=== PATIENT | male | born 1955 | race Caucasian/White ===

== ENCOUNTER 2023-06-22 19:19 | Inpatient (IN) | payer OTHER, BC ==
[2023-06-22 19:28] VITALS: BMI 28.7
[2023-06-22] MEDS ORDERED: ACETAMINOPHEN 1000 MG/100 ML BAG IVPB ONE (20:04)
[2023-06-22] MEDS ORDERED: guaiFENesin 200 MG/10 ML 10 ML UNIT-DOSE CUPS PO ONE (20:04)
[2023-06-22] MEDS ORDERED: SODIUM CHLORIDE 0.9% 500 ML INFUS.BAG IV ONE (20:07)
[2023-06-22] MEDS ORDERED: ONDANSETRON 4 MG/2 ML VIAL IVPUSH ONE (20:24)
[2023-06-22] MEDS: ALBUTEROL SO4 2.5/IPRATROPIUM 0.5 INH SOL 3 ML VIAL.NEB. NEB SCH ×3 (20:47→21:00)
[2023-06-22 20:52] LABS: BASO % 0.2 % (0-2.0); EOS % 0.5 % (0-4.5); HEMATOCRIT 39.7 % (35.4-49); HEMOGLOBIN 13.9 GM/dL (11.7-16.9); LYMPH % 7.9 % (8-40); MCH 32.4 pg (25.7-33.7); MEAN CELL VOLUME 92.4 fl (80-96); MEAN PLT VOLUME 6.8 fl (7.5-11.1); MONO % 12.2 % (3.8-10.2); NEUT % 79.2 % (42.8-82.8); PLATELET COUNT 271 10^3/uL (134-434); RDW 13.5 % (11.9-15.9)
[2023-06-22 20:56] LABS: INR 1.31 (0.83-1.09); PROTHROMBIN TIME (PATIENT) 15.1 SEC (9.7-13.0)
[2023-06-22 20:58] LABS: ACTIVATED PTT 30.3 SECONDS (25.2-36.5)
[2023-06-22 21:39] LABS: POTASSIUM 3.8 mmol/L (3.5-5.1)
[2023-06-22 21:41] LABS: CALCIUM 8.6 mg/dL (8.5-10.1)
[2023-06-22 21:42] LABS: ALBUMIN 3.8 g/dl (3.4-5.0); BLOOD UREA NITROGEN 15.5 mg/dL (7-18); MAGNESIUM 1.6 mg/dL (1.8-2.4)
[2023-06-22] MEDS ORDERED: OSELTAMIVIR PHOSPHATE 75 MG CAPSULE PO ONE (21:42)
[2023-06-22] MEDS ORDERED: methylPREDNISolone NA SUCC 125 MG/2 ML VIAL IVPUSH ONE (21:42)
[2023-06-22 21:45] LABS: CREATININE 0.8 mg/dL (0.55-1.3)
[2023-06-22] MEDS: ALBUTEROL SO4 0.083% IH SOL 2.5 MG/3 ML VIAL.NEB. NEB SCH ×4 (21:45→22:32)
[2023-06-22 21:46] LABS: BILIRUBIN,TOTAL 0.6 mg/dL (0.2-1)
[2023-06-22] MEDS ORDERED: ALBUTEROL SO4 0.083% IH SOL 2.5 MG/3 ML VIAL.NEB. NEB ONE (21:50)
[2023-06-22] MEDS ORDERED: methylPREDNISolone NA SUCC 125 MG/2 ML VIAL ONE (21:51)
[2023-06-22] MEDS ORDERED: OSELTAMIVIR PHOSPHATE 75 MG CAPSULE ONE (21:51)
[2023-06-22] MEDS ORDERED: MAGNESIUM 1GM/D5W - 1 GM/100 ML IVPB IVPB ONE (21:51)
[2023-06-23] MEDS ORDERED: methylPREDNISolone NA SUCC 40 MG/1 ML VIAL ONE ×3 (02:52→13:49)
[2023-06-23] MEDS: methylPREDNISolone NA SUCC 40 MG/1 ML VIAL IVPUSH SCH ×4 (02:58→21:55)
[2023-06-23] MEDS ORDERED: ALBUTEROL SO4 2.5/IPRATROPIUM 0.5 INH SOL 3 ML VIAL.NEB. NEB PRN (07:06)
[2023-06-23] MEDS ORDERED: OSELTAMIVIR PHOSPHATE 75 MG CAPSULE ONE (08:16)
[2023-06-23] MEDS ORDERED: ESCITALOPRAM OXALATE 10 MG TABLET ONE (08:16)
[2023-06-23] MEDS ORDERED: guaiFENesin 200 MG/10 ML 10 ML UNIT-DOSE CUPS ONE (08:16)
[2023-06-23] MEDS ORDERED: busPIRone HCL 5 MG TABLET ONE (08:16)
[2023-06-23] MEDS ORDERED: ALBUTEROL SO4 2.5/IPRATROPIUM 0.5 INH SOL 3 ML VIAL.NEB. NEB ONE ×2 (08:16→13:49)
[2023-06-23] MEDS: ESCITALOPRAM OXALATE 20 MG TABLET PO SCH (08:20)
[2023-06-23] MEDS: busPIRone HCL 5 MG TABLET PO SCH (08:20)
[2023-06-23] MEDS: OSELTAMIVIR PHOSPHATE 75 MG CAPSULE PO SCH ×2 (08:20→21:55)
[2023-06-23 09:11] LABS: HEMATOCRIT 38.7 % (35.4-49); HEMOGLOBIN 13.5 GM/dL (11.7-16.9); MCH 32.3 pg (25.7-33.7); MCHC 34.8 g/dl (32.0-35.9); MEAN CELL VOLUME 92.6 fl (80-96); MEAN PLT VOLUME 7.3 fl (7.5-11.1); PLATELET COUNT 255 10^3/uL (134-434); RBC 4.18 M/mm3 (4.00-5.60); RDW 13.4 % (11.9-15.9); WHITE BLOOD COUNT 8.3 K/mm3 (4.0-10.0)
[2023-06-23 09:45] LABS: ANISOCYTOSIS 0; HELMET CELLS 0; HOWELL-JOLLY BODIES 0; MACROCYTOSIS 0; OVALOCYTE 0; ROULEAU 0; SICKELED CELLS 0; TARGET CELLS 0; TEAR DROP CELLS 0; TOXIC GRANULATION 0
[2023-06-23 09:54] LABS: POTASSIUM 4.1 mmol/L (3.5-5.1)
[2023-06-23 10:10] LABS: BLOOD UREA NITROGEN 12.6 mg/dL (7-18); CALCIUM 8.8 mg/dL (8.5-10.1)
[2023-06-23 10:13] LABS: CREATININE 0.7 mg/dL (0.55-1.3)
[2023-06-23] MEDS: THEOPHYLLINE ANHYDROUS 200 MG CAP.ER.24H PO SCH (13:23)
[2023-06-23] MEDS: ALBUTEROL SO4 2.5/IPRATROPIUM 0.5 INH SOL 3 ML VIAL.NEB. NEB SCH ×2 (13:51→20:22)
[2023-06-23] MEDS: ALBUTEROL SO4 0.083% IH SOL 2.5 MG/3 ML VIAL.NEB. NEB PRN (18:06)
[2023-06-23] MEDS ORDERED: ALBUTEROL SO4 0.083% IH SOL 2.5 MG/3 ML VIAL.NEB. NEB ONE (18:06)
[2023-06-23] MEDS: MONTELUKAST NA 10 MG TABLET PO SCH (21:55)
[2023-06-23] MEDS: guaiFENesin 200 MG/10 ML 10 ML UNIT-DOSE CUPS PO PRN (22:06)
[2023-06-24] MEDS: methylPREDNISolone NA SUCC 40 MG/1 ML VIAL IVPUSH SCH ×4 (03:35→17:39)
[2023-06-24] MEDS: ALBUTEROL SO4 0.083% IH SOL 2.5 MG/3 ML VIAL.NEB. NEB PRN (04:30)
[2023-06-24] MEDS: guaiFENesin 200 MG/10 ML 10 ML UNIT-DOSE CUPS PO PRN ×2 (04:51→21:37)
[2023-06-24] MEDS: ALBUTEROL SO4 2.5/IPRATROPIUM 0.5 INH SOL 3 ML VIAL.NEB. NEB SCH ×3 (08:40→20:07)
[2023-06-24] MEDS ORDERED: ESCITALOPRAM OXALATE 10 MG TABLET ONE (09:09)
[2023-06-24] MEDS: busPIRone HCL 5 MG TABLET PO SCH (09:13)
[2023-06-24] MEDS: ESCITALOPRAM OXALATE 20 MG TABLET PO SCH (09:14)
[2023-06-24] MEDS: THEOPHYLLINE ANHYDROUS 200 MG CAP.ER.24H PO SCH (09:14)
[2023-06-24] MEDS: OSELTAMIVIR PHOSPHATE 75 MG CAPSULE PO SCH ×2 (10:38→21:37)
[2023-06-24] MEDS: MONTELUKAST NA 10 MG TABLET PO SCH (21:37)
[2023-06-25] MEDS: ALBUTEROL SO4 0.083% IH SOL 2.5 MG/3 ML VIAL.NEB. NEB PRN ×3 (00:43→11:26)
[2023-06-25] MEDS: methylPREDNISolone NA SUCC 40 MG/1 ML VIAL IVPUSH SCH ×3 (01:30→21:36)
[2023-06-25] MEDS: ALBUTEROL SO4 2.5/IPRATROPIUM 0.5 INH SOL 3 ML VIAL.NEB. NEB SCH ×3 (07:38→20:19)
[2023-06-25] MEDS ORDERED: ESCITALOPRAM OXALATE 10 MG TABLET ONE (09:11)
[2023-06-25] MEDS: clonazePAM 0.5 MG TABLET PO SCH ×2 (09:25→21:36)
[2023-06-25] MEDS: busPIRone HCL 5 MG TABLET PO SCH (09:25)
[2023-06-25] MEDS: ESCITALOPRAM OXALATE 20 MG TABLET PO SCH (09:25)
[2023-06-25] MEDS: OSELTAMIVIR PHOSPHATE 75 MG CAPSULE PO SCH ×2 (09:26→21:36)
[2023-06-25] MEDS: THEOPHYLLINE ANHYDROUS 200 MG CAP.ER.24H PO SCH (09:26)
[2023-06-25 10:38] LABS: HEMATOCRIT 39.8 % (35.4-49); HEMOGLOBIN 13.5 GM/dL (11.7-16.9); MCH 31.3 pg (25.7-33.7); MEAN CELL VOLUME 92.1 fl (80-96); MEAN PLT VOLUME 7.1 fl (7.5-11.1); PLATELET COUNT 343 10^3/uL (134-434); RBC 4.33 M/mm3 (4.00-5.60); RDW 13.7 % (11.9-15.9); WHITE BLOOD COUNT 25.2 K/mm3 (4.0-10.0)
[2023-06-25 11:00] LABS: POTASSIUM 3.9 mmol/L (3.5-5.1)
[2023-06-25 11:03] LABS: CALCIUM 8.7 mg/dL (8.5-10.1)
[2023-06-25 11:04] LABS: BLOOD UREA NITROGEN 17.4 mg/dL (7-18)
[2023-06-25 11:07] LABS: CREATININE 0.8 mg/dL (0.55-1.3)
[2023-06-25 11:36] LABS: ANISOCYTOSIS 0; MACROCYTOSIS 0
[2023-06-25] MEDS: MONTELUKAST NA 10 MG TABLET PO SCH (21:36)
[2023-06-26] MEDS: ALBUTEROL SO4 0.083% IH SOL 2.5 MG/3 ML VIAL.NEB. NEB PRN (05:30)
[2023-06-26] MEDS: ALBUTEROL SO4 2.5/IPRATROPIUM 0.5 INH SOL 3 ML VIAL.NEB. NEB SCH ×3 (08:15→20:10)
[2023-06-26] MEDS ORDERED: AZITHROMYCIN 250 MG TABLET PO ONE (09:12)
[2023-06-26] MEDS ORDERED: ESCITALOPRAM OXALATE 10 MG TABLET ONE (09:50)
[2023-06-26] MEDS: OSELTAMIVIR PHOSPHATE 75 MG CAPSULE PO SCH ×2 (10:02→22:10)
[2023-06-26] MEDS: busPIRone HCL 5 MG TABLET PO SCH (10:02)
[2023-06-26] MEDS: clonazePAM 0.5 MG TABLET PO SCH ×2 (10:02→22:10)
[2023-06-26] MEDS: methylPREDNISolone NA SUCC 40 MG/1 ML VIAL IVPUSH SCH ×2 (10:02→22:10)
[2023-06-26] MEDS: ESCITALOPRAM OXALATE 20 MG TABLET PO SCH (10:03)
[2023-06-26] MEDS: THEOPHYLLINE ANHYDROUS 200 MG CAP.ER.24H PO SCH (10:03)
[2023-06-26] MEDS ORDERED: methylPREDNISolone NA SUCC 40 MG/1 ML VIAL IVPUSH ONE (15:30)
[2023-06-26] MEDS: MONTELUKAST NA 10 MG TABLET PO SCH (22:10)
[2023-06-26] MEDS: CEFTRIAXONE 1 GM in DEXTROSE 5%-WATER - 50 ML IVPB SCH (22:10)
[2023-06-27] MEDS: ALBUTEROL SO4 0.083% IH SOL 2.5 MG/3 ML VIAL.NEB. NEB PRN (06:00)
[2023-06-27] MEDS: ALBUTEROL SO4 2.5/IPRATROPIUM 0.5 INH SOL 3 ML VIAL.NEB. NEB SCH ×3 (07:15→20:05)
[2023-06-27] MEDS ORDERED: ESCITALOPRAM OXALATE 10 MG TABLET ONE (09:18)
[2023-06-27] MEDS: CEFTRIAXONE 1 GM in DEXTROSE 5%-WATER - 50 ML IVPB SCH (09:27)
[2023-06-27] MEDS: guaiFENesin 200 MG/10 ML 10 ML UNIT-DOSE CUPS PO PRN (09:27)
[2023-06-27] MEDS: methylPREDNISolone NA SUCC 40 MG/1 ML VIAL IVPUSH SCH (09:28)
[2023-06-27] MEDS: THEOPHYLLINE ANHYDROUS 200 MG CAP.ER.24H PO SCH (09:29)
[2023-06-27] MEDS: OSELTAMIVIR PHOSPHATE 75 MG CAPSULE PO SCH ×2 (09:29→21:40)
[2023-06-27] MEDS: ESCITALOPRAM OXALATE 20 MG TABLET PO SCH (09:29)
[2023-06-27] MEDS: busPIRone HCL 5 MG TABLET PO SCH (09:30)
[2023-06-27] MEDS: clonazePAM 0.5 MG TABLET PO SCH ×2 (09:30→21:40)
[2023-06-27] MEDS: AZITHROMYCIN IVPB 500 MG/250 ML BAG IVPB SCH (18:25)
[2023-06-27] MEDS: predniSONE 10 MG TABLET (UD) PO SCH (21:40)
[2023-06-27] MEDS: MONTELUKAST NA 10 MG TABLET PO SCH (21:40)
[2023-06-28] MEDS: ALBUTEROL SO4 0.083% IH SOL 2.5 MG/3 ML VIAL.NEB. NEB PRN (06:39)
[2023-06-28] MEDS: ALBUTEROL SO4 2.5/IPRATROPIUM 0.5 INH SOL 3 ML VIAL.NEB. NEB SCH ×3 (07:34→20:06)
[2023-06-28] MEDS ORDERED: ESCITALOPRAM OXALATE 10 MG TABLET ONE (09:02)
[2023-06-28] MEDS: AZITHROMYCIN IVPB 500 MG/250 ML BAG IVPB SCH (09:08)
[2023-06-28] MEDS: ESCITALOPRAM OXALATE 20 MG TABLET PO SCH (09:08)
[2023-06-28] MEDS: THEOPHYLLINE ANHYDROUS 200 MG CAP.ER.24H PO SCH (09:08)
[2023-06-28] MEDS: CEFTRIAXONE 1 GM in DEXTROSE 5%-WATER - 50 ML IVPB SCH (09:08)
[2023-06-28] MEDS: clonazePAM 0.5 MG TABLET PO SCH ×2 (09:10→21:35)
[2023-06-28] MEDS: busPIRone HCL 5 MG TABLET PO SCH (09:10)
[2023-06-28 10:19] LABS: HEMATOCRIT 36.6 % (35.4-49); HEMOGLOBIN 12.6 GM/dL (11.7-16.9); MCH 31.7 pg (25.7-33.7); MCHC 34.3 g/dl (32.0-35.9); MEAN CELL VOLUME 92.4 fl (80-96); MEAN PLT VOLUME 6.9 fl (7.5-11.1); PLATELET COUNT 321 10^3/uL (134-434); RBC 3.96 M/mm3 (4.00-5.60); RDW 13.5 % (11.9-15.9); WHITE BLOOD COUNT 19.5 K/mm3 (4.0-10.0)
[2023-06-28] MEDS: predniSONE 10 MG TABLET (UD) PO SCH ×2 (10:39→21:35)
[2023-06-28 11:29] LABS: ANISOCYTOSIS 0; HELMET CELLS 0; HOWELL-JOLLY BODIES 0; MACROCYTOSIS 0; OVALOCYTE 0; ROULEAU 0; SICKELED CELLS 0; TARGET CELLS 0; TEAR DROP CELLS 0; TOXIC GRANULATION 0
[2023-06-28 14:49] VITALS: RESP 18
[2023-06-28] MEDS: guaiFENesin 200 MG/10 ML 10 ML UNIT-DOSE CUPS PO PRN (21:35)
[2023-06-28] MEDS: MONTELUKAST NA 10 MG TABLET PO SCH (21:35)
[2023-06-29] MEDS: ALBUTEROL SO4 0.083% IH SOL 2.5 MG/3 ML VIAL.NEB. NEB PRN (03:03)
[2023-06-29] MEDS: ALBUTEROL SO4 2.5/IPRATROPIUM 0.5 INH SOL 3 ML VIAL.NEB. NEB SCH ×3 (08:18→20:34)
[2023-06-29] MEDS ORDERED: ESCITALOPRAM OXALATE 10 MG TABLET ONE (09:08)
[2023-06-29] MEDS: CEFTRIAXONE 1 GM in DEXTROSE 5%-WATER - 50 ML IVPB SCH (09:37)
[2023-06-29] MEDS: busPIRone HCL 5 MG TABLET PO SCH (09:38)
[2023-06-29] MEDS: clonazePAM 0.5 MG TABLET PO SCH ×2 (09:38→21:22)
[2023-06-29] MEDS: AZITHROMYCIN IVPB 500 MG/250 ML BAG IVPB SCH (09:38)
[2023-06-29] MEDS: predniSONE 10 MG TABLET (UD) PO SCH ×2 (09:39→21:22)
[2023-06-29] MEDS: ESCITALOPRAM OXALATE 20 MG TABLET PO SCH (09:48)
[2023-06-29] MEDS: THEOPHYLLINE ANHYDROUS 200 MG CAP.ER.24H PO SCH (09:48)
[2023-06-29] MEDS: guaiFENesin 200 MG/10 ML 10 ML UNIT-DOSE CUPS PO PRN (21:22)
[2023-06-29] MEDS: MONTELUKAST NA 10 MG TABLET PO SCH (21:22)
[2023-06-30] MEDS: ALBUTEROL SO4 0.083% IH SOL 2.5 MG/3 ML VIAL.NEB. NEB PRN (05:11)
[2023-06-30] MEDS: ALBUTEROL SO4 2.5/IPRATROPIUM 0.5 INH SOL 3 ML VIAL.NEB. NEB SCH ×2 (08:01→13:05)
[2023-06-30 09:36] VITALS: TEMP 97.8
[2023-06-30] MEDS ORDERED: ESCITALOPRAM OXALATE 10 MG TABLET ONE (10:14)
[2023-06-30] MEDS: clonazePAM 0.5 MG TABLET PO SCH (10:33)
[2023-06-30] MEDS: busPIRone HCL 5 MG TABLET PO SCH (10:33)
[2023-06-30] MEDS: predniSONE 10 MG TABLET (UD) PO SCH (10:33)
[2023-06-30] MEDS: ESCITALOPRAM OXALATE 20 MG TABLET PO SCH (10:33)
[2023-06-30] MEDS: CEFTRIAXONE 1 GM in DEXTROSE 5%-WATER - 50 ML IVPB SCH (10:34)
[2023-06-30] MEDS: THEOPHYLLINE ANHYDROUS 200 MG CAP.ER.24H PO SCH (10:34)
[2023-06-30 11:08] LABS: CALCIUM 8.4 mg/dL (8.5-10.1)
[2023-06-30 11:09] LABS: BLOOD UREA NITROGEN 16.6 mg/dL (7-18)
[2023-06-30 11:12] LABS: CREATININE 0.8 mg/dL (0.55-1.3)
[2023-06-30 11:13] LABS: BILIRUBIN,TOTAL 0.5 mg/dL (0.2-1); TOT PROT 6.4 g/dl (6.4-8.2)
[2023-06-30 11:21] LABS: HEMOGLOBIN 14.5 GM/dL (11.7-16.9); MCH 31.8 pg (25.7-33.7); MCHC 34.5 g/dl (32.0-35.9); MEAN CELL VOLUME 92.1 fl (80-96); MEAN PLT VOLUME 6.7 fl (7.5-11.1); PLATELET COUNT 426 10^3/uL (134-434); RBC 4.56 M/mm3 (4.00-5.60); RDW 13.9 % (11.9-15.9); WHITE BLOOD COUNT 20.5 K/mm3 (4.0-10.0)
[2023-06-30] MEDS: AZITHROMYCIN IVPB 500 MG/250 ML BAG IVPB SCH (11:47)
[2023-06-30 12:30] LABS: ANISOCYTOSIS 0; MACROCYTOSIS 0
[2023-06-30 15:27] VITALS: BP 107/59; PULSE 90
== END 2023-06-30 19:41 | DRG 194 ==
LOC: JER 19:19 → JERBED 21:47 → J6S 06-23 18:45 → OBSVTOIN 06-24 16:01
PROVIDERS: ADMIT Internal Medicine; ATTEND Family Medicine
DX: J10.00 Influenza due to other identified influenza virus with unspecified type of pneumonia (principal); J45.41 Moderate persistent asthma with (acute) exacerbation; F32.A Depression, unspecified; R25.1 Tremor, unspecified
CPT/HCPCS: 0241U-QW; 36415; 71045-TC-FY; 71046-TC-FY; 80048; 80053; 80198; 83735; 84484; 85025; 85610; 85730; 87040; 87070; 87205; 87899; 93005; 93010; 94150; 94640; 94761; 97116-GP; 97162-GP; 99285-25; G0378